=== PATIENT | male | born 1970 | race African-American/Black ===

== ENCOUNTER 2021-01-04 11:51 | Emergency (ER) | payer OTHER ==
[2021-01-04 12:13] VITALS: BMI 28.3
[2021-01-04] MEDS ORDERED: ACETAMINOPHEN 1000 MG/100 ML VIAL IVPB ONE (13:33)
[2021-01-04] MEDS ORDERED: SODIUM CHLORIDE 1,000 ML IV STA (13:34)
[2021-01-04] MEDS ORDERED: ACETAMINOPHEN INJECTION 100 ML IVPB ONE (13:59)
[2021-01-04 14:36] LABS: BASO % 0.7 % (0-2.0); EOS % 0.4 % (0-4.5); HEMATOCRIT 42.4 % (35.4-49); HEMOGLOBIN 14.3 GM/dL (11.7-16.9); LYMPH % 12.5 % (8-40); MCH 28.6 pg (25.7-33.7); MCHC 33.8 g/dl (32.0-35.9); MEAN CELL VOLUME 84.5 fl (80-96); MEAN PLT VOLUME 7.4 fl (7.5-11.1); MONO % 10.4 % (3.8-10.2); PLATELET COUNT 273 10^3/uL (134-434); RBC 5.02 M/mm3 (4.00-5.60); RDW 14.2 % (11.9-15.9); WHITE BLOOD COUNT 9.3 K/mm3 (4.0-10.0)
[2021-01-04 14:57] LABS: ALBUMIN 3.7 g/dl (3.4-5.0); BLOOD UREA NITROGEN 11.9 mg/dL (7-18); CALCIUM 9.1 mg/dL (8.5-10.1)
[2021-01-04 15:00] LABS: CREATININE 1.1 mg/dL (0.55-1.3)
[2021-01-04 15:02] LABS: BILIRUBIN,TOTAL 0.5 mg/dL (0.2-1); TOT PROT 7.5 g/dl (6.4-8.2)
[2021-01-04 16:21] VITALS: BP 138/74; PULSE 78; TEMP 98
[2021-01-04 16:23] LABS: EPI CELLS 12 /uL (0-25.1); HYALINE CASTS 7 /uL (0-3.1); PH,URINE 5.5 (5.0-8.0); URINE APPEARANCE CLEAR; URINE BACTERIA 6 /uL (0-1359); URINE BILIRUBIN NEGATIVE (NEGATIVE); URINE COLOR YELLOW; URINE GLUCOSE (UA) NEGATIVE (NEGATIVE); URINE KETONE NEGATIVE (NEGATIVE); URINE LEUK ESTERASE NEGATIVE (NEGATIVE); URINE NITRITE NEGATIVE (NEGATIVE); URINE PROTEIN 1+ (NEGATIVE); URINE RBC 12 /uL (0-23.9); URINE WBC 18 /uL (0-25.8)
== END 2021-01-04 16:22 | disposition home or self-care (01) ==
LOC: JER 11:51
PROC: 3E033NZ Introduction of Analgesics, Hypnotics, Sedatives into Peripheral Vein, Percutaneous Approach (ICD-10-PCS; principal; 2021-01-04)
PROC: 3E0337Z Introduction of Electrolytic and Water Balance Substance into Peripheral Vein, Percutaneous Approach (ICD-10-PCS; 2021-01-04)
DX: M62.838 Other muscle spasm (principal)
CPT/HCPCS: 36415; 74176-TC; 80053; 81003; 85025; 87086; 99285-25; J0131